=== PATIENT | male | born 1950 | race Caucasian/White ===

== ENCOUNTER 2023-11-02 10:55 | Inpatient (IN) | payer OTHER ==
[~2023-11-02] VITALS: Ht 182.8 cm; Wt 107.0 kg
[2023-11-02 10:55] VITALS: BP 114/60
[~2023-11-02 10:55] MED LIST: ASPIRIN81 M1 PO; NORCO 325 MG-51 TAB PO; POTASSIUM CITR10 MEQ PO
[2023-11-02 11:23] LABS: BASO # 0.1 10*3/uL (0.0-0.1); BASO % 0.7 % (0.0-1.0); EOS # 0.5 10*3/uL (0.0-0.4); EOS % 6.8 % (1.0-4.0); HEMATOCRIT 46.9 % (42.0-52.0); LYMPH # 1.2 10*3/uL (1.3-4.4); LYMPH % 17.2 % (27.0-41.0); MEAN CELL VOLUME 88.2 fl (80.0-94.0); MEAN CORPUSCULAR HGB 30.3 pg (27.0-31.0); MEAN CORPUSCULAR HGB CONC 34.3 g/dl (33.0-37.0); MEAN PLATELET VOLUME 11.1 fl (9.6-12.3); MONO # 0.7 10*3/uL (0.1-1.0); MONO % 10.5 % (3.0-9.0); NEUT # 4.4 10*3/uL (2.3-7.9); NEUT % 64.5 % (47.0-73.0); PLATELET COUNT AUTOMATED 196 10*3/uL (130-400); RED BLOOD COUNT 5.32 10*6/uL (4.50-5.90); RED CELL DISTRI WIDTH 13.2 % (0-14.5); WHITE BLOOD COUNT 6.9 10*3/uL (4.8-10.8)
[2023-11-02 11:33] LABS: ACT PARTIAL THROMBO TIME 26.8 SECONDS (20.0-32.1)
[2023-11-02 11:48] LABS: POTASSIUM 3.9 mmol/L (3.4-5.1); TOTAL PROTEIN 6.9 gm/dL (6.0-8.0)
[2023-11-02 13:17] VITALS: BP 125/86
[2023-11-02] MEDS ORDERED: ALLOPURINOL300 MG PO (13:19)
[2023-11-02] MEDS ORDERED: ROSUVASTATIN CAL5 MG PO (13:19)
[2023-11-02] MEDS ORDERED: BISACODYL 5 MG TAB PO PRN (14:05)
[2023-11-02] MEDS ORDERED: Ondansetron Hydrochloride 4 MG/2 ML VIAL IV PRN (14:05)
[2023-11-02] MEDS ORDERED: Magnesium Hydroxide 30 ML UDC PO PRN (14:05)
[2023-11-02] MEDS ORDERED: ACETAMINOPHEN 325 MG TAB PO PRN (14:05)
[2023-11-02] MEDS ORDERED: TEMAZEPAM 15 MG CAP PO PRN (14:05)
[2023-11-02] MEDS ORDERED: SODIUM CHLORIDE 0.9% 1,000 ML IV ONE (14:10)
[2023-11-02 16:53] VITALS: BP 131/77
[2023-11-02 17:32] VITALS: BP 122/66
[2023-11-02 19:13] VITALS: BP 131/70
[2023-11-02 21:19] VITALS: BP 154/92
[2023-11-03] VITALS: BP 131/73
[2023-11-03 06:35] LABS: BASO # 0.1 10*3/uL (0.0-0.1); BASO % 0.6 % (0.0-1.0); EOS # 0.4 10*3/uL (0.0-0.4); EOS % 5.1 % (1.0-4.0); HEMATOCRIT 47.3 % (42.0-52.0); LYMPH # 1.6 10*3/uL (1.3-4.4); LYMPH % 19.1 % (27.0-41.0); MEAN CELL VOLUME 87.4 fl (80.0-94.0); MEAN CORPUSCULAR HGB 30.7 pg (27.0-31.0); MEAN CORPUSCULAR HGB CONC 35.1 g/dl (33.0-37.0); MEAN PLATELET VOLUME 11.4 fl (9.6-12.3); MONO # 0.8 10*3/uL (0.1-1.0); MONO % 9.8 % (3.0-9.0); NEUT # 5.3 10*3/uL (2.3-7.9); NEUT % 65.2 % (47.0-73.0); PLATELET COUNT AUTOMATED 204 10*3/uL (130-400); RED BLOOD COUNT 5.41 10*6/uL (4.50-5.90); RED CELL DISTRI WIDTH 13.6 % (0-14.5); WHITE BLOOD COUNT 8.2 10*3/uL (4.8-10.8)
[2023-11-03] MEDS ORDERED: Regadenoson 0.4 MG/5 ML SYR IV ONE (06:47)
[2023-11-03 07:27] LABS: ALKALINE PHOSPHATASE 118 U/L (46-116); BUN 16 mg/dl (9-23); CHLORIDE 110 mmol/L (98-107); CHOLESTEROL 168 mg/dL (<200); FREE T4 1.03 ng/dl (0.89-1.76); LDL CHOLESTEROL 79 mg/dL (9-159); POTASSIUM 4.3 mmol/L (3.4-5.1); SGPT/ALT 21 U/L (5-49); TRIGLYCERIDES 276 mg/dl (<150)
[2023-11-03 08:00] VITALS: BP 132/81
[2023-11-03 08:08] LABS: VITAMIN D, 25-HYDROXY 33.3 ng/mL (30-100)
[2023-11-03] MEDS ORDERED: Enoxaparin Sodium 40 MG/0.4 ML SYR SC SCH (10:00)
[2023-11-03 12:00] VITALS: BP 142/69
[2023-11-03] MEDS ORDERED: ATORVASTATIN CALCIUM 40 MG TABLET PO SCH (22:00)
== END 2023-11-03 16:31 | disposition home or self-care (01) | DRG 206 ==
LOC: ED → EDHOLD 13:41 → 4E 13:41 → EDHOLD 13:42 → 4E 20:39
PROVIDERS: Internal Medicine; ADMIT Family Medicine; ATTEND Family Medicine
PROC: 4A02XM4 Measurement of Cardiac Total Activity, External Approach (ICD-10-PCS; principal; 2023-11-03)
PROC: 3E073KZ Introduction of Other Diagnostic Substance into Coronary Artery, Percutaneous Approach (ICD-10-PCS; 2023-11-03)
DX: M94.0 Chondrocostal junction syndrome [Tietze] (principal); E87.8 Other disorders of electrolyte and fluid balance, not elsewhere classified; Z96.643 Presence of artificial hip joint, bilateral; R73.9 Hyperglycemia, unspecified; N18.31 Chronic kidney disease, stage 3a; Z87.891 Personal history of nicotine dependence; Z79.82 Long term (current) use of aspirin; Z79.1 Long term (current) use of non-steroidal anti-inflammatories (NSAID); Z79.899 Other long term (current) drug therapy